=== PATIENT | female | born 1945 | race Caucasian/White ===

== ENCOUNTER 2022-02-16 09:45 | Day surgery (SDC) | payer MEDICARE, OTHER, SELFPAY ==
[2022-02-16] MEDS: fentaNYL 100 MCG/2 ML inj IVP (09:28)
[2022-02-16] MEDS: LACTATED RINGERS 1000 ML 1,000 ML 100 ML IV ×2 (09:30→13:18)
[2022-02-16 10:11] VITALS: BMI 29.8
[2022-02-16 10:18] VITALS: BP 174/111; PULSE 100; RESP 20; TEMP 36.6; O2SAT 95
[2022-02-16] MEDS: SODIUM CHLORIDE 0.9 % (FLUSH) 10 ML SYRINGE IVF (10:37)
[2022-02-16] MEDS: ETHYL CHLORIDE 1 APPLICATION 1 APPLIC TOPICAL (10:37)
--- NOTE | 2022-02-16 10:44 | SUR.PREOP ---
TIME?OUT:?1045, left arm PT/RN/MDA?VERIFICATION?OF?SURGICAL?SITE,?PROCEDURE,?AND?CONSENT OBTAINED?PRIOR?TO?INVASIVE?PROCEDURE.
[2022-02-16 10:45] VITALS: BP 164/102; PULSE 99; RESP 20; TEMP 36.6; O2SAT 97
[2022-02-16] MEDS: MIDAZOLAM HCL 1 MG/ML inj IVP (10:45)
[2022-02-16 10:54] VITALS: BP 164/92; PULSE 100; RESP 20; TEMP 36.6; O2SAT 97
--- NOTE | 2022-02-16 11:06 | W.PM.NB ---
Nerve Block Nerve Block Date Seen: 02/16/22 Type of block requested by surgeon for post-operative analgesia: axillary Side: left Time out performed: Yes Verification of patient name: Yes Verification of date of : Yes Site marking: site marked Name of person performing procedure: Too Continuous monitoring Was continuous monitoring of O2 sat, B/P, motion picture operator, recorded every 15 minutes?: Yes Procedure Checklist: sterile prep, needles and gloves Ultrasound guided. Images saved: Yes Medications given in 5ml increments after negative aspiration: Ropivicaine %: 0.5 mL: 30 Needle gauge: 22 Patient tolerated procedure well: Yes Additional comments: Needle noted adjacent to nerve Block Charges Block Charge (with Pro Fee): Brachial Plexus Use of Ultrasound Machine for Block: Yes- US Guidance/pain block
[2022-02-16] MEDS: CEFAZOLIN 2 GM INJ IVP (12:35)
--- NOTE | 2022-02-16 12:44 | CRLHL7_ITS ---
For Patients: As a result of the Century Cures Act, medical imaging exams and procedure reports are released immediately into your electronic medical record. You may view this report before your referring provider. If you have questions, please contact your health care provider. INDICATION: Intraoperative evaluation. Fluoroscopic guidance. TECHNIQUE: Three portable spot intraoperative images were acquired of the left wrist. FINDINGS: 38.5 seconds fluoroscopy time utilized intraoperatively. Three spot images were obtained demonstrating four metallic pins traversing the distal left radius. IMPRESSION: 38.5 seconds fluoroscopy time utilized intraoperatively. Dictated by Jaime Marroquin MD @ 02/16/2022 1:36:20 PM (Electronically Signed)
--- NOTE | 2022-02-16 13:28 | W.ANESCHARGE ---
Anesthesia Charges Start Date/Time Anesthesia Start Date: 02/16/22 Anesthesia Start Time: 12:30 Stop Date/Time Anesthesia Stop Date: 02/16/22 Anesthesia Stop Time: 13:26 Summary Emergency: No Extremes of Age: Over 70-CPT 58908
[2022-02-16 13:30] VITALS: BP 144/91; PULSE 113; RESP 20; TEMP 36.6; O2SAT 92
--- NOTE | 2022-02-16 13:33 | PM.ORPRC ---
Procedure Note Date of procedure: 02/16/22 Procedure: SURGEON: Henry Tejeda MD PET WALKER: Rosa Garvin PA-C PREOPERATIVE DIAGNOSIS: Angulated 2 part extra-articular left upper extremity distal radius fracture POSTOPERATIVE DIAGNOSIS: Angulated 2 part extra-articular left upper extremity distal radius fracture NAME OF OPERATION: Closed reduction percutaneous pinning ANESTHESIA: Supraclavicular block plus monitored anesthesia care ESTIMATED BLOOD LOSS: 0 mL COMPLICATIONS: None SPECIMENS: None DRAINS: None PREOPERATIVE ANTIBIOTICS: Ancef 2 grams INDICATIONS: The patient is a 76-year-old female who slipped and fell landing on their upper extremity sustaining the above injury. Given the amount of angulation, reduction and pin fixation were recommended. The risks, benefits and expected outcomes were discussed in detail. These included but were not limited to: Infection, bleeding, injury to blood vessel or nerve, venous thromboembolism. All questions were answered to their satisfaction. Use of an fast food sales assistant was necessary throughout the case for patient positioning and safety, maintenance of the reduction, pin site dressing and splint application. PROCEDURE: A supraclavicular block was placed by Anesthesia. The patient was placed supine on the operating room table. IV sedation was administered. The upper extremity was prepped and draped in the usual sterile fashion. The reduction was obtained with longitudinal traction and volar force on the distal fragment. The image intensifier was used to confirm an anatomic reduction. We placed a 0.062 in K-wire retrograde through the radial styloid across the fracture site engaging the ulnar cortex of the proximal fragment. Its placement was confirmed with the image intensifier. We placed a 2nd 0.062 in K-wire parallel to this just volar to the original pin. Next, we placed a 3rd 0.062 in K-wire antegrade through the radial cortex of the proximal fragment across the fracture site engaging the ulnar side of the distal fragment. Finally, we placed a 4th 0.062 in K-wire retrograde through the dorsal ulnar corner of the distal radius, driving it proximally and radially across the fracture site. This construct was imaged in multiple views and was felt to have an excellent reduction with well placed pins. The pins were bent, cut off and were appropriately dressed. A well-padded short-arm dorsovolar splint was applied. Sponge and needle counts were correct x2. The patient tolerated the procedure well. There were no apparent complications. They were carefully transferred to the hospital bed and taken to the postanesthesia care unit in satisfactory condition. PLAN: The patient will be discharged home. They will work on elevation of the hand and active range of motion of the fingers. They will follow up in the office next week to assess the pin sites with three views of the wrist out of the splint prior to being seen in preparation for cast immobilization.
--- NOTE | 2022-02-16 13:33 | W.ANESCHARGE ---
Anesthesia Charges Start Date/Time Anesthesia Start Date: 02/16/22 Anesthesia Start Time: 12:30 Stop Date/Time Anesthesia Stop Date: 02/16/22 Anesthesia Stop Time: 13:26 Summary Emergency: No Extremes of Age: Over 71-CPT 15212
[2022-02-16 13:45] VITALS: BP 143/87; PULSE 115; RESP 20; TEMP 36.6; O2SAT 94
[2022-02-16 14:15] VITALS: BP 144/84; PULSE 105; RESP 20; TEMP 36.4; O2SAT 92
== END 2022-02-16 14:40 | disposition home or self-care (01) ==
PROVIDERS: PCP Internal Medicine; Visit Provider Orthopaedic Surgery
PROC: (CPT 25575; principal; 2022-02-16 11:30)
DX: S52.552A Other extraarticular fracture of lower end of left radius, initial encounter for closed fracture (principal)
CPT/HCPCS: 25606; 01820; 01830; 64415; 73100; 76000; 76942; 99100; A4580; J0690; J1100; J2250; J2405; J2704; J2795; J3010; J7120

== ENCOUNTER 2023-06-27 08:32 | Day surgery (SDC) | payer MEDICARE, OTHER, SELFPAY ==
[2023-06-27] MEDS: TETRACAINE 0.5% OPHTH 1 DROP EYE-RIGHT ×2 (09:00→09:10)
[2023-06-27 09:09] VITALS: BMI 30.5
[2023-06-27 09:15] VITALS: BP 169/101; PULSE 92; RESP 20; TEMP 36.3; O2SAT 96
[2023-06-27] MEDS: SODIUM CHLORIDE 0.9 % (FLUSH) 10 ML SYRINGE IVF (09:40)
--- NOTE | 2023-06-27 09:41 | SUR.PREOP ---
The eye drops brought by the patient (Ketorolac and Prednisolone) are examined and I have determined they are labeled by the patient's pharmacy for this patient as prescribed by the surgeon. The bottles are intact, recently obtained and appear to be correct.
[2023-06-27] MEDS: BALANCED SALT IRRIG SOLN 15 ML EYE-RIGHT (10:05)
[2023-06-27] MEDS: TETRACAINE 0.5% OPHTH 2 DROP EYE-RIGHT (10:05)
[2023-06-27] MEDS: TRYPAN BLUE 0.5 ML SYRINGE EYE-RIGHT (10:10)
--- NOTE | 2023-06-27 10:35 | P.OPTPRC_ITS ---
Procedure Note Date of procedure: 06/27/23 Will [facility] bill your pro fee for this procedure?: Yes Procedure Description: SURGEON: Deedee Tejeda MD PREOPERATIVE DIAGNOSIS: Nuclear sclerotic cataract, right eye. POSTOPERATIVE DIAGNOSIS: Nuclear sclerotic cataract, right eye. NAME OF OPERATION: Phacoemulsification of cataract with posterior chamber intraocular lens implantation in the right eye. ANESTHESIA: Topical. ESTIMATED BLOOD LOSS: Less than 2 cc. COMPLICATIONS: None. PATHOLOGY SPECIMEN: None. INDICATIONS: See consult note for details. The risks, benefits and alternatives of the procedure were explained to the patient, who elected to proceed and signed informed consent to do so. PROCEDURE: The patient was brought to the pre-holding area where the right eye was identified as the operative eye. I placed my initials above this eye. The patient received eye drops consisting of 0.5% tetracaine, 1% tropicamide, 10% phenylephrine, and 0.5% ketorolac. The patient was then brought to the operating room where the right eye was again identified as the operative eye. The eye was prepped with Betadine and draped in the usual sterile ophthalmic fashion. A #15 super-sharp blade was used to create a paracentesis site. 1% non-preserved intracameral lidocaine was injected into the anterior chamber. Endocoat was injected into the anterior chamber. A 2.4 mm keratome was used to create a three-plane self-sealing incision 1 mm anterior to the temporal limbus. A cystotome was used to create an anterior capsular leaflet. The Utrata forceps were used to extend this to form a continuous curvilinear capsulorrhexis. Hydrodissection was performed. The cataract was removed with phacoemulsification using the [id number] technique. The irrigation and aspiration tip was used to remove the remaining cortex. Healon was injected into the capsular bag. An TILA ZCB00 intraocular lens of 19.0 diopters was injected into the capsular bag. The irrigation and aspiration tip was used to remove the remaining viscoelastic. Balanced salt solution on a cannula was used to hydrate the wound, and the wound was found to be watertight. The pupil was noted to be round. DISPOSITION: The patient was taken to the recovery room and discharged to home in stable condition. The patient was instructed to call me or go to the emergency department with any sudden change, including dramatic loss of vision, severe pain in the eye or eyebrow region, nausea, or vomiting. The patient will follow up in the clinic tomorrow morning.
[2023-06-27 10:40] VITALS: BP 163/92; PULSE 78; RESP 14; TEMP 37; O2SAT 96
--- NOTE | 2023-06-27 10:40 | W.ANESCHARGE ---
Anesthesia Charges Start Date/Time Anesthesia Start Date: 06/27/23 Anesthesia Start Time: 09:57 Stop Date/Time Anesthesia Stop Date: 06/27/23 Anesthesia Stop Time: 10:31 Summary Extremes of Age - Over 70 or under 1: MDA
--- NOTE | 2023-07-03 06:38 | P.ANES_ITS ---
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
== END 2023-06-27 11:06 | disposition home or self-care (01) ==
PROVIDERS: PCP Internal Medicine; Visit Provider Ophthalmology
PROC: (CPT 66984; principal; 2023-06-27 09:00)
DX: H25.89 Other age-related cataract (principal)
CPT/HCPCS: 66984; 00142; 99100; A9270; J2250; J3010; V2632

== ENCOUNTER 2023-07-11 08:56 | Day surgery (SDC) | payer MEDICARE, OTHER, SELFPAY ==
[2023-07-11] MEDS: KETOROLAC OPHTH 0.5% 1 DROP EYE-LEFT ×3 (09:04→09:20)
[2023-07-11] MEDS: TETRACAINE 0.5% OPHTH 1 DROP EYE-LEFT ×2 (09:04→09:15)
[2023-07-11 09:07] VITALS: BMI 30.2
[2023-07-11 09:19] VITALS: BP 146/90; PULSE 87; RESP 16; TEMP 36.7; O2SAT 96
[2023-07-11] MEDS: SODIUM CHLORIDE 0.9 % (FLUSH) 10 ML SYRINGE IVF (09:20)
[2023-07-11] MEDS: TETRACAINE 0.5% OPHTH 2 DROP EYE-LEFT (10:10)
[2023-07-11] MEDS: BALANCED SALT IRRIG SOLN 15 ML EYE-LEFT (10:14)
[2023-07-11] MEDS: TRYPAN BLUE 0.5 ML SYRINGE EYE-LEFT (10:14)
--- NOTE | 2023-07-11 10:40 | W.ANESCHARGE ---
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
[2023-07-11 10:48] VITALS: BP 137/76; PULSE 81; RESP 16; TEMP 36.3; O2SAT 95
--- NOTE | 2023-07-11 10:55 | W.ANESCHARGE ---
Anesthesia Charges Start Date/Time Anesthesia Start Date: 07/11/23 Anesthesia Start Time: 10:08 Stop Date/Time Anesthesia Stop Date: 07/11/23 Anesthesia Stop Time: 10:40 Summary Extremes of Age - Over 70 or under 1: MDA
--- NOTE | 2023-07-11 11:34 | W.PM.OPTPROC ---
Procedure Note Date of procedure: 07/11/23 Will [facility] bill your pro fee for this procedure?: Yes Procedure Description: SURGEON: Deedee Tejeda MD PREOPERATIVE DIAGNOSIS: Mature cataract, left eye. POSTOPERATIVE DIAGNOSIS: Mature cataract, left eye. NAME OF OPERATION: Phacoemulsification of cataract with posterior chamber intraocular lens implantation in the left eye with trypan blue. ANESTHESIA: Topical. ESTIMATED BLOOD LOSS: Less than 2 cc. COMPLICATIONS: None. PATHOLOGY SPECIMEN: None. INDICATIONS: See consult note for details. The risks, benefits and alternatives of the procedure were explained to the patient, who elected to proceed and signed informed consent to do so. PROCEDURE: The patient was brought to the pre-holding area where the left eye was identified as the operative eye. I placed my initials above this eye. The patient received eye drops consisting of 0.5% tetracaine, 1% tropicamide, 10% phenylephrine, and 0.5% ketorolac. The patient was then brought to the operating room where the left eye was again identified as the operative eye. The eye was prepped with Betadine and draped in the usual sterile ophthalmic fashion. A #15 super-sharp blade was used to create a paracentesis site. 1% non-preserved intracameral lidocaine was injected into the anterior chamber. An air bubble was injected into the anterior chamber. Trypan blue was injected posterior to the air bubble in order to stain the anterior capsule. Balanced salt solution was used to irrigate the anterior chamber. Endocoat was injected into the anterior chamber. A 2.4 mm keratome was used to create a three-plane self-sealing incision 1 mm anterior to the temporal limbus. A cystotome was used to create an anterior capsular leaflet. The Utrata forceps were used to extend this to form a continuous curvilinear capsulorrhexis. Hydrodissection was performed. The cataract was removed with phacoemulsification using the [id number] technique. The irrigation and aspiration tip was used to remove the remaining cortex. Healon was injected into the capsular bag. An TILA ZCB00 intraocular lens of 19.5 diopters was injected into the capsular bag. The irrigation and aspiration tip was used to remove the remaining viscoelastic. Balanced salt solution on a cannula was used to hydrate the wound, and the wound was found to be watertight. The pupil was noted to be round. DISPOSITION: The patient was taken to the recovery room and discharged to home in stable condition. The patient was instructed to call me or go to the emergency department with any sudden change, including dramatic loss of vision, severe pain in the eye or eyebrow region, nausea, or vomiting. The patient will follow up in the clinic tomorrow morning.
== END 2023-07-11 11:08 | disposition home or self-care (01) ==
LOC: OR 08:56
PROVIDERS: PCP Internal Medicine; Visit Provider Ophthalmology
PROC: (CPT 66984; principal; 2023-07-11 09:00)
DX: H25.89 Other age-related cataract (principal)
CPT/HCPCS: 66984; 00142; 99100; A9270; J2250; J3010; V2632